=== PATIENT | male | born 1935 | race Caucasian/White ===

== ENCOUNTER → 2016-11-28 | Outpatient (CLI) | payer MEDICARE | END | disposition home or self-care (01) | LOC: CFH 08:55 | PROVIDERS: ATTEND Internal Medicine | DX: M51.34 Other intervertebral disc degeneration, thoracic region (principal); M51.36 Other intervertebral disc degeneration, lumbar region; M41.86 Other forms of scoliosis, lumbar region; R10.9 Unspecified abdominal pain | CPT/HCPCS: 72080 ==

== ENCOUNTER → 2017-03-13 | Outpatient (CLI) | payer MEDICARE ==
[~2017-03-13] MED LIST: ALFU10TA PO; ASCO-96 PO; ASPI-496 PO; CHOL10002 PO; FINA5TAB4 PO; GABA300C10 PO; LORA1TAB PO; LOSA50TA6 PO; MULT-658 PO; SIMV20TA3 PO; Tylenol arthritis PO; VITA400C43 PO; ZOLP-413 PO; [UNRECOGNIZED DRUG - CODE] EACHEYE
[2017-03-13 11:57] LABS: ASPARTATE AMINO TRANSFERASE 36 U/L (15-37); BLOOD UREA NITROGEN 23 mg/dL (7-18)
== END | disposition home or self-care (01) ==
LOC: STAR 10:28
PROVIDERS: ATTEND Urology
DX: Z01.818 Encounter for other preprocedural examination (principal); R94.31 Abnormal electrocardiogram [ECG] [EKG]
CPT/HCPCS: 36415; 80053; 93005

== ENCOUNTER 2017-03-24 09:39 | Observation (INO) | payer MEDICARE ==
[~2017-03-24] VITALS: Ht 177.8 cm; Wt 92.1 kg
[2017-03-24] MEDS ORDERED: LACTATED RINGERS 1,000 ML IV SCH (09:48)
[2017-03-24] MEDS ORDERED: PHENYLEPHRINE 10 MG/ML ONE (11:53)
[2017-03-24] MEDS ORDERED: CIPROFLOXACIN/PMX 400MG/200ML 0 ML ONE ×2 (11:53→12:02)
[2017-03-24] MEDS ORDERED: DEXAMETHASONE 4 MG/ML, 1ML ONE ×3 (12:02→13:55)
[2017-03-24] MEDS ORDERED: ONDANSETRON 2MG/ML, 2ML ONE ×3 (12:02→13:55)
[2017-03-24] MEDS ORDERED: MIDAZOLAM 1 MG/ML, 2ML ONE (13:06)
[2017-03-24] MEDS ORDERED: FENTANYL PF 100 MCG/2ML ONE ×2 (13:06→13:55)
[2017-03-24] MEDS ORDERED: ONDANSETRON 2MG/ML, 2ML IVPush PRN ×2 (13:30→14:30)
[2017-03-24] MEDS ORDERED: CEFAZOLIN 1,000 MG ONE (13:55)
[2017-03-24] MEDS ORDERED: CIPROFLOXACIN/PMX 400MG/200ML 200 ML ONE (13:55)
[2017-03-24] MEDS ORDERED: PROPOFOL 10 MG/ML, 20ML ONE (13:55)
[2017-03-24] MEDS: OXYcodone 5 MG/5 ML ORAL.SOL UDC PO PRN (13:55)
[2017-03-24] MEDS ORDERED: OXYcodone 5 MG/5 ML ORAL.SOL UDC ONE (13:55)
[2017-03-24] MEDS: FENTANYL PF 100 MCG/2ML IV PRN ×2 (13:55→14:10)
[2017-03-24] MEDS ORDERED: morphine SULFATE 10 MG/ML, 1ML IV PRN (14:30)
[2017-03-24] MEDS ORDERED: PROMETHAZINE 25 MG/ML, 1ML IV PRN (14:30)
[2017-03-24] MEDS: OXYcodone/APAP 5/325MG TABLET PO PRN ×2 (15:06→22:12)
[2017-03-24] MEDS ORDERED: ARTIFICIAL TEARS OPHTH SOLN 15ML OP PRN (15:30)
[2017-03-24] MEDS ORDERED: ZOLPIDEM 5MG TABLET PO PRN (15:30)
[2017-03-24 15:33] VITALS: BP 138/70
[2017-03-24] MEDS: POTASSIUM CHLORIDE 20 MEQ in D5%-0.9% NACL 1,000 ML IV SCH (16:41)
[2017-03-24 19:49] VITALS: BP 159/83
[2017-03-24] MEDS ORDERED: ACETAMINOPHEN 325 MG TABLET PO SCH (21:00)
[2017-03-24] MEDS ORDERED: SIMVASTATIN 20 MG TABLET PO SCH (21:00)
[2017-03-25 00:33] VITALS: BP 110/66
[2017-03-25] MEDS ORDERED: CIPROFLOXACIN/PMX 400MG/200ML 200 ML IVPB SCH (04:00)
[2017-03-25 05:00] VITALS: BP 106/57
[2017-03-25 05:31] LABS: BLOOD UREA NITROGEN 23 mg/dL (7-18)
[2017-03-25] MEDS: POTASSIUM CHLORIDE 20 MEQ in D5%-0.9% NACL 1,000 ML IV SCH (06:48)
[2017-03-25] MEDS: OXYcodone/APAP 5/325MG TABLET PO PRN (06:48)
[2017-03-25 07:30] VITALS: BP 100/58
[2017-03-25] MEDS ORDERED: MULTIVITAMIN 1 TABLET PO SCH (09:00)
[2017-03-25] MEDS ORDERED: FINASTERIDE 5 MG TABLET PO SCH (09:00)
[2017-03-25] MEDS ORDERED: ALFUZOSIN 10 MG PO SCH (09:00)
[2017-03-25] MEDS ORDERED: ALFUZOSIN HOMEMEDPO SCH (09:00)
[2017-03-25] MEDS ORDERED: LOSARTAN 50MG TABLET PO SCH (09:00)
[2017-03-25] MEDS ORDERED: VITAMIN E 400 UNITS CAPSULE PO SCH (09:00)
[2017-03-25] MEDS ORDERED: ASCORBIC ACID 500 MG TABLET PO SCH (09:00)
[2017-03-25 11:09] VITALS: BP 117/58
== END 2017-03-25 11:55 | disposition home or self-care (01) ==
LOC: OUT 09:39 → ORIP 13:24 → 4NOR 14:51 → DCLOUNGE 03-25 11:45
PROVIDERS: ADMIT Urology; ATTEND Urology
DX: N40.0 Benign prostatic hyperplasia without lower urinary tract symptoms (principal)
CPT/HCPCS: 36415; 52630; 80048; 85018; 88305; 96365; G0378; J0744; J1100; J2250; J2370; J2405; J2704; J3010; J3480; J7120; J0690; J7042

== ENCOUNTER → 2018-07-29 | Outpatient (CLI) | payer MEDICARE ==
[~2018-07-29] MED LIST changes: +LOSA50TA14 PO; -LOSA50TA6 PO
== END | disposition home or self-care (01) ==
LOC: CFH 14:08
PROVIDERS: ATTEND Internal Medicine
DX: M47.816 Spondylosis without myelopathy or radiculopathy, lumbar region (principal); M41.86 Other forms of scoliosis, lumbar region; Z87.891 Personal history of nicotine dependence
CPT/HCPCS: 72110

== ENCOUNTER 2018-10-08 09:22 | Observation (INO) | payer MEDICARE ==
[~2018-10-08] VITALS: Ht 177.8 cm; Wt 87.1 kg
--- NOTE | 2018-10-08 09:49 | NUR ---
PATIENT PRESENTS TO ED TODAY FOR VISION PROBLEMS, DIZZINESS, AND "BALANCE PROBLEMS" STARTING THIS AM AFTER WAKING UP AT 0700. SYMPTOMS OF MINI STROKE, DENIES LT/RT SIDED WEAKNESS. PATIENT TO CT AT THIS TIME VIA [facility]ERYL NICK. SPOUSE AT BEDSIDE.
[2018-10-08 09:52] LABS: BASOPHILS # (AUTO) 0.02 x10^3/uL (0-0.1); BASOPHILS % (AUTO) 0 % (0-1); EOSINOPHILS # (AUTO) 0.08 x10^3/uL (0-0.4); EOSINOPHILS % (AUTO) 2 % (1-7); LYMPHOCYTES # (AUTO) 1.06 x10^3/uL (1-3.4); LYMPHOCYTES % (AUTO) 24 % (22-44); MD NO; MEAN CORPUSCULAR HGB CONC 33.1 g/dL (33.2-36.2); MEAN CORPUSCULAR VOLUME 93.8 fL (81-97); MEAN PLATELET VOLUME 7.6 fL (7.4-10.4); MONOCYTES # (AUTO) 0.47 x10^3/uL (0.2-0.8); MONOCYTES % (AUTO) 10 % (2-9); NEUTROPHILS # (AUTO) 2.91 x10^3/uL (1.8-6.8); NEUTROPHILS % (AUTO) 64 % (42-75); PLATELET COUNT 164 x10^3/uL (130-400); RED CELL DISTRIBUTION WIDTH 13.9 % (9.4-14.8)
[2018-10-08 10:06] LABS: ALANINE AMINOTRANSFERASE 43 U/L (12-78); ALBUMIN 3.9 g/dL (3.4-5.0); ANION GAP 5 mmol/L (5-15); CHLORIDE 110 mmol/L (98-107); CREATININE 1.13 mg/dL (0.7-1.3)
[2018-10-08 10:08] LABS: ALKALINE PHOSPHATASE 59 U/L (45-117); BILIRUBIN,TOTAL 2.2 mg/dL (0.2-1.0)
[2018-10-08 10:36] LABS: INTERNATIONAL NORMALIZED RATIO 1.04 (0.93-1.1); PROTHROMBIN TIME 10.9 Seconds (9.6-11.5)
--- NOTE | 2018-10-08 10:56 | NUR ---
RESULTS BACK, CHART UP FOR RECHECK.
[2018-10-08] MEDS ORDERED: ASPIRIN 325 MG TABLET ONE (11:09)
--- NOTE | 2018-10-08 11:22 | NUR ---
VS UPDATED IN CHART, PATIENT TO BE ADMIT, PATIENT READING BOOK SITTING IN GURNEY. RESP EVEN/UNLABORED. AWAITING FURTHER ORDERS.
[2018-10-08] MEDS ORDERED: ASPIRIN 325 MG TABLET PO ONE (11:30)
--- NOTE | 2018-10-08 12:09 | NUR ---
PATIENT SITTING IN [facility]L NICK. VS UPDATED IN CHART. AWAITING FURTHER ORDERS, NO ADDITIONAL NEEDS AT THIS TIME.
--- NOTE | 2018-10-08 14:57 | NUR ---
[facility] AT BEDSIDE, VS UPDATED IN CHART. PATIENT SITTING IN GURNEY, WATCHING TV WITH SPOUSE AT BEDSIDE. AWAITING FURTHER ORDERS.
[2018-10-08] MEDS ORDERED: CYCLOBENZAPRINE 10 MG TABLET PO PRN (15:00)
[2018-10-08] MEDS ORDERED: hydrALAzine 20 MG/ML, 1ML IVPush PRN (15:00)
[2018-10-08] MEDS ORDERED: TRAZODONE 50MG TABLET PO PRN (15:00)
[2018-10-08] MEDS ORDERED: ARTIFICIAL TEARS 15 DROP/ML BOTTLE EACHEYE PRN (15:00)
[2018-10-08] MEDS ORDERED: DOCUSATE 100 MG CAPSULE PO PRN (15:00)
[2018-10-08] MEDS ORDERED: GABAPENTIN 300 MG CAPSULE PO PRN (15:00)
[2018-10-08] MEDS ORDERED: ACETAMINOPHEN 325 MG TABLET PO PRN (15:00)
[2018-10-08] MEDS ORDERED: ZOLPIDEM 5MG TABLET PO PRN (15:00)
[2018-10-08] MEDS ORDERED: ONDANSETRON 2MG/ML, 2ML IVPush PRN (15:00)
--- NOTE | 2018-10-08 15:09 | NUR ---
PATIENT TO CTA VIA NADN. PARK
[2018-10-08] MEDS ORDERED: OMNIPAQUE 350 MG/ML, 100ML BOTTLE ONE (15:34)
--- NOTE | 2018-10-08 16:28 | NUR ---
VS UPDATED IN CHART, NADN. PATIENT SITTING IN GURNEY, READING BOOK, SPOUSE AT BEDSIDE WATCHING TV. AWAITING BED ASSIGNMENT. CARDIAC DIET TRAY ORDERED FOR PATIENT.
--- NOTE | 2018-10-08 17:24 | NUR ---
ED DIET TRAY PROVIDED TO PATIENT, PATIENT SITTING IN GURNEY, EATING FOOD. SPOUSE AT BEDSIDE. VS UPDATED IN CHART. AWAITING BED ASSIGNMENT.
--- NOTE | 2018-10-08 18:42 | NUR ---
Note chuy in ED - 10/08/18 at 1843 by BRENDA PATIENT TRANSFERRED TO [facility] AT THIS TIME, REPORT TO KAITLYN LAL. VS UPDATED IN CHART, RT AT BEDSIDE.
--- NOTE | 2018-10-08 19:22 | NUR ---
REPORT TO KAITLYN BARRIOS.
--- NOTE | 2018-10-08 20:13 | NUR ---
PATIENT TRANSFERRED TO HOSPITAL BED, VS UPDATED IN CHART. AWAITING ROOM TO BE CLEAN UPSTAIRS, NO ADDITIONAL NEEDS AT THIS TIME.
--- NOTE | 2018-10-08 20:25 | NUR ---
ROOM READY, PATIENT BEING TRANSFERRED/ADMITTED UPSTAIRS AT THIS TIME.
[2018-10-08 20:40] VITALS: BP 134/76
[2018-10-08 20:43] VITALS: BP 145/77
[2018-10-08 20:45] VITALS: BP 148/69
[2018-10-08] MEDS ORDERED: SIMVASTATIN 20 MG TABLET PO SCH (21:00)
[2018-10-08] MEDS ORDERED: LOSARTAN 50MG TABLET PO SCH (21:30)
[2018-10-09 00:25] VITALS: BP 127/72
[2018-10-09 05:34] LABS: CHOL/HDL RATIO 3.6; THYROID STIMULATING HORMONE 1.62 mIU/L (0.358-3.740)
[2018-10-09 07:20] VITALS: BP 122/74
[2018-10-09] MEDS ORDERED: CHOLECALCIFEROL 1,000 UNIT TABLET PO SCH (09:00)
[2018-10-09] MEDS ORDERED: ASPIRIN 81 MG TABLET EC PO SCH (09:00)
[2018-10-09] MEDS ORDERED: LOSARTAN 50MG TABLET PO SCH (09:00)
[2018-10-09] MEDS ORDERED: MULTIVITAMIN 1 TABLET PO SCH (09:00)
[2018-10-09] MEDS ORDERED: ASCORBIC ACID 500 MG TABLET PO SCH (09:00)
[2018-10-09 13:07] VITALS: BP 109/61
== END 2018-10-09 18:10 | disposition home or self-care (01) ==
LOC: ED 10:33 → EDIP 11:19 → INTOOBSV 11:19 → 4WST 20:33
PROVIDERS: ADMIT Internal Medicine; ATTEND Internal Medicine
DX: R42 Dizziness and giddiness (principal); Z79.899 Other long term (current) drug therapy; I10 Essential (primary) hypertension; E78.5 Hyperlipidemia, unspecified; Z86.69 Personal history of other diseases of the nervous system and sense organs; Z79.82 Long term (current) use of aspirin; H53.9 Unspecified visual disturbance; Z80.8 Family history of malignant neoplasm of other organs or systems; Z82.49 Family history of ischemic heart disease and other diseases of the circulatory system; Z82.3 Family history of stroke
CPT/HCPCS: 36415; 70450; 70498; 70551; 80053; 80061; 84443; 85025; 85610; 85730; 93005; 93306; 97162; 99284; G0378; Q9967